=== PATIENT | female | born 1925 | race Caucasian/White ===

== ENCOUNTER 2016-06-22 17:43 | Emergency (ER) | payer MEDICARE ==
[2016-06-22 18:28] LABS: SPECIFIC GRAVITY 1.015 (1.001-1.030); URINE BILIRUBIN NEGATIVE (NEGATIVE); URINE BLOOD 2+ (NEGATIVE); URINE GLUCOSE (UA) NEGATIVE (NEGATIVE); URINE LEUKOCYTE ESTERASE NEGATIVE (NEGATIVE); URINE NITRITE NEGATIVE (NEGATIVE); URINE PROTEIN NEGATIVE (NEGATIVE); URINE UROBILINOGEN NORMAL (0-1 mg/dl)
[2016-06-22 18:34] LABS: URINE APPEARANCE CLEAR; URINE COLOR YELLOW
[2016-06-22 18:55] LABS: URINE BACTERIA RARE; URINE EPITHELIAL CELLS 0 /hpf; URINE WBC NEG /hpf
--- NOTE | 2016-06-22 19:06 | RAD ---
Name: KACIE SHAY MANISHROMINARDLOI Exam: Pelvis/left hip Comparison: None Clinical history: Low back pain Findings: AP pelvis and 2 views of the left hip are submitted. 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 There is minimal pelvic tilting to the left. Limited views of the SI joints and pubic symphysis are normal. There is mild to moderate degenerative disease of right hip. Severe degenerative disease left hip is identified. There is no fracture or dislocation. There is no suspicious mass or calcification. Impression: 1. 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
[2016-06-22] MEDS ORDERED: PREDNISONE 20 MG TABLET ONE (20:15)
== END 2016-06-22 20:42 | disposition home or self-care (01) ==
LOC: ED 17:43
DX: M54.42 Lumbago with sciatica, left side (principal); M16.12 Unilateral primary osteoarthritis, left hip